=== PATIENT | male | born 1990 | race Caucasian/White ===

== ENCOUNTER 2024-09-29 12:08 | Emergency (ER) | payer OTHER ==
[~2024-09-29] VITALS: Ht 177.8 cm; Wt 95.0 kg
[2024-09-29 12:38] VITALS: BP 156/61; PULSE 69; RESP 18; TEMP 98.3; O2SAT 100
[2024-09-29] MEDS: METHOCARBAMOL 500 MG TABLET PO ONE (13:39)
[2024-09-29] MEDS: LIDOCAINE 5% TRANSDERMAL PATCH TD ONE (13:40)
[2024-09-29] MEDS: KETOROLAC TROMETHAMINE 60 MG/2 ML VIAL IM ONE (13:42)
== END 2024-09-29 14:26 | disposition home or self-care (01) ==
LOC: EMS 12:34
DX: S29.012A Strain of muscle and tendon of back wall of thorax, initial encounter (principal); S46.012A Strain of muscle(s) and tendon(s) of the rotator cuff of left shoulder, initial encounter; S16.1XXA Strain of muscle, fascia and tendon at neck level, initial encounter; G89.29 Other chronic pain; I10 Essential (primary) hypertension; Z88.2 Allergy status to sulfonamides; Z91.030 Bee allergy status; X58.XXXA Exposure to other specified factors, initial encounter; Y93.89 Activity, other specified; Y92.89 Other specified places as the place of occurrence of the external cause; Y99.8 Other external cause status
CPT/HCPCS: 99283; J1885